=== PATIENT | female | born 1990 | race Caucasian/White ===

== ENCOUNTER 2019-06-21 11:52 | Emergency (ER) | payer MEDICAID ==
[2019-06-21] MEDS ORDERED: Tetracaine 0.5% 2 ML Bottle ONE (12:00)
[2019-06-21 12:08] VITALS: BP 103/67; PULSE 82
--- NOTE | 2019-06-21 12:49 | EDM.PDOC ---
ED HPI GENERAL MEDICAL PROBLEM - General Stated Complaint: EYE RED Time Seen by Provider: 06/21/19 12:00 Source of Information: Reports: Patient History Limitations: Reports: No Limitations - History of Present Illness INITIAL COMMENTS - FREE TEXT/NARRATIVE: This is a 29yo F here for left eye irritation and no improvement since she started antibacterial eye drops. Patient denies any other issues. She notes clear vision but has moments of blurriness, she is able to move the eye without irritation or pain. The irritation is mainly of the general eye and she does feel slight pressure of the eye. 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 ED EXAM GENERAL W FULL EYE - Physical Exam Exam: See Below Exam Limited By: No Limitations General Appearance: Alert, WD/WN, No Apparent Distress Eye Exam: Right Eye: Normal Inspection, Left Eye: Conjunctival Injection, Bilateral Eye: EOMI, PERRL Eyelids: Left: Edema Conjunctiva & Sclera: Right: Normal Appearance, Left: Injected Cornea Exam: Left: Examined with Flourescein (normal tearing layer and no abrasions), Bilateral: Normal Appearance Extraocular Movements: Bilateral: Intact Pupils: Normal Accommodation Pupillary Size: Bilateral: 4 mm Pupillary Reaction: Bilateral: Brisk Anterior Chamber: Bilateral: Normal Appearance Posterior Chamber: Left: Unable to Examine Ears: Normal External Exam Nose: Normal Inspection Throat/Mouth: Normal Inspection Head: Atraumatic, Normocephalic Neck: Normal Inspection Respiratory/Chest: No Respiratory Distress, Lungs Clear Cardiovascular: Normal Peripheral Pulses Neurological: Alert, Oriented Psychiatric: Normal Affect, Normal Mood Skin Exam: Warm, Dry, Intact Course - Vital Signs Last Recorded V/S: Last Vital Signs Temp 36.9 C 06/21/19 12:03 Pulse 82 06/21/19 12:03 Resp 16 06/21/19 12:03 BP 103/67 06/21/19 12:03 Pulse Ox 98 06/21/19 12:03 Departure - Departure Time of Disposition: 12:30 Disposition: Home, Self-Care 01 Condition: Good Clinical Impression: Blepharitis of left eye Qualifiers: Blepharitis type: unspecified type Eyelid: unspecified eyelid Qualified Code(s) : H01.006 - Unspecified blepharitis left eye, unspecified eyelid Conjunctivitis Qualifiers: Conjunctivitis type: acute Acute conjunctivitis type: bacterial Laterality: left Qualified Code(s): H10.32 - Unspecified acute conjunctivitis, left eye - Discharge Information Instructions: Blepharitis, [id number], Azithromycin tablets Referrals: PCP,None [Primary Care Provider] - - Problem List & Annotations (1) Blepharitis of left eye SNOMED Code(s): 986421843267334 Code(s): H01.006 - UNSPECIFIED BLEPHARITIS LEFT EYE, UNSPECIFIED EYELID Status: Acute Current Visit: Yes Qualifiers: Blepharitis type: unspecified type Eyelid: unspecified eyelid Qualified Code(s): H01.006 - Unspecified blepharitis left eye, unspecified eyelid (2) Conjunctivitis SNOMED Code(s): 5813146 Code(s): H10.9 - UNSPECIFIED CONJUNCTIVITIS Status: Acute Current Visit: Yes Qualifiers: Conjunctivitis type: acute Acute conjunctivitis type: bacterial Laterality: left Qualified Code(s): H10.32 - Unspecified acute conjunctivitis , left eye - Problem List Review Problem List Initiated/Reviewed/Updated: Yes - Assessment/Plan Plan: Counseled on close monitoring and care of eye. Discussed continue f/u as directed and rtc or ER as needed if symptoms worsen. Discussed continued re- evaluation until resolution. Discussed antibiotics and use as directed. F/u if any concerns.
[2019-06-21] MEDS ORDERED: Apixaban 2.5 MG Tab ONE (17:30)
== END 2019-06-21 12:24 | disposition home or self-care (01) ==
LOC: LB.ED 11:52
DX: H10.32 Unspecified acute conjunctivitis, left eye (principal); H01.006 Unspecified blepharitis left eye, unspecified eyelid
CPT/HCPCS: 99282; A9270-GY

== ENCOUNTER 2024-09-26 09:05 | Emergency (ER) | payer SELFPAY ==
[2024-09-26] MEDS ORDERED: Naloxone 2 MG/2 ML Syringe IVPUSH PRN ×2 (09:22→09:48)
[2024-09-26] MEDS: HYDROmorphone 1 MG/ML Syringe IVPUSH ONE ×2 (09:31→09:50)
[2024-09-26 09:35] LABS: BASOPHILS ABSOLUTE AUTO 0.02 K/uL (0.02-0.10); BASOPHILS PERCENT AUTO 0.3 % (0.0-0.5); EOSINOPHILS ABSOLUTE AUTO 0.15 K/uL (0.04-0.40); EOSINOPHILS PERCENT AUTO 2.1 % (1.0-5.0); HEMATOCRIT 37.9 % (37.0-47.0); HEMOGLOBIN 12.9 g/dL (11.5-16.5); LYMPHOCYTES ABSOLUTE AUTO 2.64 K/uL (1.50-4.00); LYMPHOCYTES PERCENT AUTO 36.3 % (20.0-40.0); MEAN CORPUSCULAR HEMOGLOBIN 32.7 pg (27.0-32.0); MEAN CORPUSCULAR VOLUME 96 fL (76-96); MEAN PLATELET VOLUME 9.9 fL (6.0-10.0); MONOCYTES ABSOLUTE AUTO 0.62 K/uL (0.20-0.80); MONOCYTES PERCENT AUTO 8.5 % (3.0-10.0); NEUTROPHILS ABSOLUTE AUTO 3.84 K/uL (2.00-7.50); NEUTROPHILS PERCENT AUTO 52.8 % (45.0-70.0); PLATELET COUNT,PLT 243 K/uL (150-500); RED BLOOD CELL COUNT 3.95 M/uL (3.80-5.80); RED CELL DISTRIBUTION WIDTH 12.6 % (11.0-16.0); WHITE BLOOD CELL COUNT,WBC 7.3 K/uL (4.0-11.0)
[2024-09-26] MEDS: Ondansetron 4 MG/2 ML SDV IVPUSH ONE ×2 (09:37→09:40)
[2024-09-26 09:56] LABS: A/G RATIO 1.1 (0.8-2.0); ALBUMIN 3.9 g/dL (3.4-5.0); ANION GAP 13.3 mmol/L (5.0-15.0); BILIRUBIN TOTAL 0.6 mg/dL (0.0-1.0); BUN/CREATININE RATIO 10.6 (6-25); CARBON DIOXIDE,CO2 28.1 mmol/L (21.0-32.0); CREATININE 0.85 mg/dL (0.55-1.02); EST CRCL DRUG DOSING (CG) 81.29 mL/min; POTASSIUM,K 3.4 mmol/L (3.5-5.1); PROTEIN TOTAL,TP 7.5 g/dL (6.4-8.2)
[2024-09-26] MEDS: Ketorolac 30 MG/ML SDV IVPUSH ONE (10:09)
[2024-09-26 10:11] LABS: APPEARANCE,URINE SLIGHTLY CLOUDY (CLEAR); COLOR,URINE YELLOW; PROTEIN,URINE TRACE mg/dL (NEGATIVE)
[2024-09-26 10:12] LABS: BACTERIA,URINE FEW /HPF; BILIRUBIN,URINE NEGATIVE (NEGATIVE); GLUCOSE,URINE NEGATIVE (NEGATIVE); KETONES,URINE NEGATIVE (NEGATIVE); LEUKOCYTE ESTERASE,URINE NEGATIVE (NEGATIVE); MUCUS,URINE FEW /HPF; NITRITE,URINE NEGATIVE (NEGATIVE); OCCULT BLOOD,URINE NEGATIVE (NEGATIVE); RBC,URINE NOT SEEN /HPF; SQUAMOUS EPITHELIAL CELLS,UR MODERATE /HPF; UROBILINOGEN,URINE 0.2 E.U./dL (0.2-1.0); WBC,URINE 0-5 /HPF
[2024-09-26] MEDS: Sodium Chloride 0.9% 1,000 ML IV SCH (10:40)
[2024-09-26] MEDS: Tamsulosin 0.4 MG Cap.ER PO ONE (10:44)
[2024-09-26] MEDS ORDERED: Ibuprofen 800 MG Tab ONE (12:30)
[2024-09-26] MEDS ORDERED: Acetaminophen/oxyCODONE 325-5 MG Tab ONE (12:30)
[2024-09-26 13:18] VITALS: PULSE 76
[2024-09-26 13:20] VITALS: BP 120/82
== END 2024-09-26 13:05 | disposition home or self-care (01) ==
LOC: LB.ED 09:05
DX: N13.2 Hydronephrosis with renal and ureteral calculous obstruction (principal)
CPT/HCPCS: 36415; 74176; 80053; 81001; 85025; 96361; 96374; 96375; 99284; 99284-25; A9270-GY; J1171; J1885; J2405; J7030